=== PATIENT | male | born 1990 ===

== ENCOUNTER 2019-08-31 23:38 | Emergency (ER) | payer BC, MEDICAID ==
[~2019-08-31] VITALS: Ht 182.9 cm; Wt 99.8 kg
[2019-09-01] MEDS ORDERED: ONDANSETRON ODT 4 MG TAB.RAPDIS SL ONE
[2019-09-01] MEDS ORDERED: HYDROCODONE/APAP 10-325 MG TABLET PO ONE
[2019-09-01] MEDS ORDERED: HYDROCODONE/APAP 10-325 MG TABLET ONE (00:03)
[2019-09-01] MEDS ORDERED: ONDANSETRON ODT 4 MG TAB.RAPDIS ONE (00:03)
[2019-09-01] MEDS ORDERED: IBUPROFEN 600 MG TABLET ONE (00:09)
[2019-09-01] MEDS ORDERED: IBUPROFEN 600 MG TABLET PO ONE (00:15)
--- NOTE | 2019-09-01 00:32 | NUR ---
Crutches dispensed. Pt instructed on proper use of crutches. Patient able to demonstrate correct use of crutches.
--- NOTE | 2019-09-01 00:40 | NUR ---
Patient discharged to home in stable condition. Written and verbal after care instructions given. Patient verbalizes understanding of instructions. Stressed follow up or return to ER for worsening s/s.
[2019-09-01 00:42] VITALS: BP 128/77
== END 2019-09-01 00:43 | disposition home or self-care (01) ==
LOC: ER 23:46
DX: S93.402A Sprain of unspecified ligament of left ankle, initial encounter (principal); X50.1XXA Overexertion from prolonged static or awkward postures, initial encounter; Y92.89 Other specified places as the place of occurrence of the external cause
CPT/HCPCS: 73610; 73630; A4663; Q0162

== ENCOUNTER 2020-05-28 00:51 | Emergency (ER) | payer BC ==
[~2020-05-28] VITALS: Ht 182.9 cm; Wt 97.5 kg
[2020-05-28] MEDS ORDERED: PANTOPRAZOLE SODIUM 40 MG TABLET.DR PO ONE ×2 (01:15→01:34)
[2020-05-28] MEDS ORDERED: MAG HYDROX/AL HYDROX/SIMETH 30 ML LIQUID UDC PO ONE (01:15)
[2020-05-28] MEDS ORDERED: DICYCLOMINE HCL LIQ 10 MG/5 ML UDC PO ONE (01:15)
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
[2020-05-28] MEDS ORDERED: DICYCLOMINE HCL LIQ 10 MG/5 ML UDC ONE (01:34)
[2020-05-28] MEDS ORDERED: MAGNESIUM HYDROXIDE 30 ML LIQUID UDC ONE (01:36)
[2020-05-28] MEDS ORDERED: MAG HYDROX/AL HYDROX/SIMETH 30 ML LIQUID UDC ONE (01:38)
[2020-05-28 01:40] LABS: BASOPHILS # (AUTO) 0.1 K/uL (0.0-8.0); BASOPHILS % (AUTO) 0.4 % (0.0-2.0); EOSINOPHILS # (AUTO) 0.2 K/uL (0.0-0.7); HEMATOCRIT 48.6 % (36.7-47.1); HEMOGLOBIN 16.5 g/dL (12.5-16.3); LYMPHOCYTES # (AUTO) 1.7 K/uL (20.0-40.0); LYMPHOCYTES % (AUTO) 9.7 % (20.5-51.5); MEAN CORPUSCULAR HEMOGLOBIN 32.6 uug (23.8-33.4); MEAN CORPUSCULAR HGB CONC 34 g/dL (32.5-36.3); MEAN CORPUSCULAR VOLUME 96.1 fL (73.0-96.2); MONOCYTES # (AUTO) 0.9 K/uL (2.0-10.0); MONOCYTES % (AUTO) 5.2 % (0.0-11.0); NEUTROPHILS # (AUTO) 14.4 K/uL (1.8-8.9); NEUTROPHILS % (AUTO) 83.7 % (38.5-71.5); PLATELET COUNT (AUTO) 320 K/uL (152-348); RED BLOOD CELL COUNT(AUTO) 5.06 MIL/uL (4.06-5.63); WHITE BLOOD COUNT (AUTO) 17.1 K/uL (3.6-10.2)
[2020-05-28 01:45] LABS: CREATININE 1.2 mg/dL (0.6-1.3); POTASSIUM 4.3 mmol/L (3.5-5.1)
[2020-05-28 01:52] LABS: BILIRUBIN,DIRECT 0.2 mg/dL (0.0-0.2); BILIRUBIN,TOTAL 0.6 mg/dL (0.2-1.0); TOTAL PROTEIN, SERUM 7.4 g/dL (6.4-8.2)
--- NOTE | 2020-05-28 02:05 | NUR ---
DR GREGORIO IS AT BEDSIDE , LAB WORK RESULTS EXPLAINED , REFUSED ANY [employer] KIND OF MEDICATIONS OFFERED BY
[2020-05-28 02:12] VITALS: BP 132/88
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
== END 2020-05-28 02:14 | disposition home or self-care (01) ==
LOC: ER 00:56
DX: R10.13 Epigastric pain (principal); F32.9 Major depressive disorder, single episode, unspecified
CPT/HCPCS: 36415; 83690; 85025; A4663